=== PATIENT | male | born 1960 | race Caucasian/White ===

== ENCOUNTER 2017-01-21 14:11 | Emergency (ER) | payer SELFPAY ==
[~2017-01-21] VITALS: Ht 165.1 cm; Wt 68.0 kg
[2017-01-21 14:52] VITALS: BP 141/57
== END 2017-01-21 14:52 | disposition home or self-care (01) ==
LOC: ED 14:11
DX: S81.811A Laceration without foreign body, right lower leg, initial encounter (principal); S91.331A Puncture wound without foreign body, right foot, initial encounter; W20.8XXA Other cause of strike by thrown, projected or falling object, initial encounter; Y93.89 Activity, other specified; Y92.89 Other specified places as the place of occurrence of the external cause; Y99.8 Other external cause status
CPT/HCPCS: 90715; J2001

== ENCOUNTER 2017-11-16 06:59 | Observation (INO) | payer OTHER ==
[~2017-11-16] VITALS: Ht 157.5 cm; Wt 68.0 kg
[2017-11-16 08:15] LABS: UA SPECIFIC GRAVITY >=1.030 (1.005-1.035); microscopic required? YES; urine erythrocyte 1+ (NEGATIVE)
[2017-11-16 10:14] LABS: BASOPHIL % 0.2 % (0-2); PLATELET COUNT 197 x10^3mcL (130-400)
[2017-11-16 10:29] LABS: CALCIUM 9.5 mg/dL (8.5-10.1); CARBON DIOXIDE 26.5 mmol/L (21-32); CHLORIDE SERUM 100 mmol/L (98-107); GFR1 > 60 mL/min; GLUCOSE SERUM 108 mg/dL (74-106); POTASSIUM SERUM 3.8 mmol/L (3.5-5.1); SODIUM SERUM 136 mmol/L (136-145)
[2017-11-16 10:33] LABS: ALKALINE PHOSPHATASE 90 U/L (46-116); ALT/SGPT 48 U/L (16-63); AST/SGOT 29 U/L (15-37); BILIRUBIN TOTAL 0.5 mg/dL (0.20-1.00)
[2017-11-16 11:14] LABS: T3 TOTAL 1.58 ng/mL
[2017-11-16 11:16] LABS: MAGNESIUM 1.9 mg/dL (1.8-2.4); PHOSPHOROUS 3.3 mg/dL (2.5-4.9)
[2017-11-16 11:23] VITALS: BP 150/59
[2017-11-16 11:27] LABS: FREE T4 0.85 ng/dL (0.76-1.46); FREE THYROXINE INDEX 2.8 ug/dL (1.4-4.5); T4(THYROXINE) 9.3 ug/dL (4.7-13.3)
[2017-11-16 11:29] LABS: CHOLESTEROL/HDL RATIO 5.4
[2017-11-16 14:25] LABS: AMPHETAMINE QUAL UR NONE DETECTED (NEG <=1000)
[2017-11-16 17:16] VITALS: BP 140/90
[2017-11-16 21:51] VITALS: BP 136/80
[2017-11-17 06:15] VITALS: BP 141/72
[2017-11-17 06:48] LABS: BASOPHIL % 0.3 % (0-2); PLATELET COUNT 183 x10^3mcL (130-400)
[2017-11-17 06:54] LABS: CALCIUM 8.1 mg/dL (8.5-10.1); CARBON DIOXIDE 23.1 mmol/L (21-32); CHLORIDE SERUM 106 mmol/L (98-107); CREATININE SERUM 0.9 mg/dL (0.7-1.3); GFR1 > 60 mL/min; GLUCOSE SERUM 110 mg/dL (74-106); POTASSIUM SERUM 3.9 mmol/L (3.5-5.1); SODIUM SERUM 139 mmol/L (136-145)
[2017-11-17 09:45] VITALS: BP 129/79
[2017-11-17] MEDS ORDERED: NORCO1 TA2 PO (13:10)
[2017-11-17] MEDS ORDERED: LEVAQUIN750 MG PO (13:10)
[2017-11-17 13:35] VITALS: BP 129/79; BP 144/88
[2017-11-20 13:15] VITALS: Ht 157.5 cm; Wt 68.0 kg
== END 2017-11-17 14:28 | disposition home or self-care (01) | DRG 729 ==
LOC: ED 06:59 → DU 09:57 → EDBEDREQ 09:58 → DU 11:05
PROVIDERS: Emergency Medicine; Family Medicine
DX: N43.3 Hydrocele, unspecified (principal); N39.0 Urinary tract infection, site not specified; N45.3 Epididymo-orchitis; A56.19 Other chlamydial genitourinary infection; R31.9 Hematuria, unspecified; E78.5 Hyperlipidemia, unspecified; Z68.24 Body mass index [BMI] 24.0-24.9, adult
CPT/HCPCS: 83880; 84439; 87491; 87591; G0378; J1885; J1956; J3490; J7030; Q0092; Q9967